=== PATIENT | male | born 1960 | race Caucasian/White ===

== ENCOUNTER 2018-05-25 12:06 | Inpatient (IN) ==
[2018-05-25] MEDS ORDERED: LORazepam 1 MG Tablet PO ONE (15:30)
[2018-05-25] MEDS ORDERED: Acetaminophen 325 MG Tablet PO PRN (15:59)
[2018-05-25] MEDS ORDERED: Aluminum/Magnesium/Simethacone Susp 30 ML UDC PO PRN (15:59)
--- NOTE | 2018-05-26 17:39 | P.HPPSY ---
Provisional Diagnosis Admission Date: May 25, 2018 15:11 [place] I.: Schizophrenia Competence Certification of Person's Competence To Provide Express and Informed Consent I have personally examined Nguyễn Stephens, a person being served at [facility] on, May 26, 2018 1739. Express and informed consent means consent voluntarily given in writing, by a competent person, after sufficient explanation and disclosure of the subject matter involved to enable the person to make a knowing and willful decision without any element of force, fraud, deceit, duress, or other form of constraint or coercion. This person is 18 years of age or older, is not now known to be incompetent to consent to treatment with a guardian advocate, and does not have a health care surrogate or proxy currently making medical treatment decisions. I have found this person to be one of the following: [] Competent to provide express and informed consent, as defined above, for voluntary admission to this facility and is competent to provide express and informed consent for treatment. He/she has the consistent capacity to make well reasoned, willful, and knowing decisions concerning his or her medical or mental health treatment. The person fully and consistently understands the purpose of the admission for examination/placement and is fully capable of personally exercising all rights assured [place]xxx] Incompetent to provide express and informed consent to voluntary admission , and this is incompetent to provide express and informed consent to treatment. The person must be transferred to involuntary status and a petition for a guardian advocate filed with the Circuit Court. [] Refusing to provide express and informed consent to voluntary admission but is competent to provide express and informed consent for treatment. The person must be discharged or transferred to involuntary status. Form shall be completed within 24 hours of a person's arrival at the receiving facility and filed in the clinical record of each person: 1. Admitted on a voluntary basis 2. Permitted to provide express and informed consent to his/her own treatment 3. Allowed to transfer from involuntary to voluntary status 4. Prior to permitting a person to consent to his or her own treatment after having been previously found incompetent to consent to treatment. History of Present Illness Capacity: Lacks capacity History of Present Illness: Tanya is a 58 y/o man, domiciled with mother, with a past history of schizophrenia, previous psychiatric admissions including state hospitalizations, denies any previous suicide attempt or self interest behavior , with a past medical history significant for hypertension COPD, denies any substance use history, who was brought under Pacheco act the patient was found naked in the field noted to be disorganized, confused, tangential and manic and was admitted to the inpatient psychiatry for further evaluation and management. Patient was found lying hospital bed noted B, and superficially cooperative that he is noted to be grossly disorganized during interview and was currently taking statements and responses to questioning. Patient states that he was walking in circles, unable to recall events prior to his admission only stating that people were making fun of him. Patient denying auditory hallucinations but is noted to be talking to self as per staff observation on the unit. Patient unable to provide any adequate history is a poor historian. Patient has endorse to staff that he is a "serial killer" as well as other bizarre statements. Patient is unable to tolerate interview due to disorganization. Past psychiatric history: Previous psychiatric diagnoses schizophrenia, previous psychiatric admissions, including state hospitalization, no previous suicide attempt or self interest behavior. Patient has no outpatient mental health provider, previous medication trials included in psychotic mood able to recall names, along with Artane and Benadryl. History of ECT treatments in the past as per chart. Past medical history: hypertension, COPD Substance use history: Denies Allergies: Thorazine, Haldol, Prolixin Social history: Reports living with brother. - Inpatient Certification I certify that the inpatient services were ordered in accordance with Medicare regulations governing the order. This includes certification that hospital inpatient services are reasonable and necessary and in the case of services not specified as inpatient-only under 42 CFR 419.22(n), that they are appropriately provided as inpatient services in accordance to with the 2-midnight benchmark under 43 CFR 412.3(e) I certify that inpatient psychiatric hospital services are medically necessary. Evaluation and treatment and/or diagnostic testing are expected to improve the patient's condition. The patient needs on a daily basis, active treatment furnished directly by or requiring the supervision of inpatient psychiatric facility personnel. Estimated Total Length of Stay (Days): 7 Plans for Post Hospital Care: Not yet determined Review of Systems All other systems reviewed negative except as stated in HPI [facility] - History History Provided By: Patient - Tobacco History Smoking Status: Unknown if ever smoked - Alcohol History How Often Do You Have a Drink Containing Alcohol: Unable to Obtain - Substance Use History Substance History: No History of Abuse - Immunization History Tetanus Immunization: Unable to Assess Hx Influenza Vaccine This Season: Unable to Assess Quality Measures - Psychiatric History Psychological trauma history: Unable to assess due to patient disorganized thought process. Violence risk to others in the last 6 months: Low Violence risk to self in the last 6 months: Low - Substance Abuse History Drug or alcohol use in the past 12 months: Denies - Patient Strengths Patient's strengths (minimum of 2): Verbal and communicative Medications and Allergies Active Medications: Active Medications Acetaminophen (Tylenol) 650 mg PO Q4H PRN PRN Reason: Pain 1-5 or Temp >101F Al Hydrox/Mg Hydrox/Simethicone (Mag-Al Plus Susp Liq) 30 ml PO Q6H PRN PRN Reason: DYSPEPSIA Al Hydroxide/Mg Hydroxide (Milk Of Magnesia Liq) 30 ml PO DAILY PRN PRN Reason: Constipation Diphenhydramine HCl (Benadryl) 50 mg PO HS PRN PRN Reason: INSOMNIA Nicotine (Habitrol 21 Mg Patch.24 Hr) 1 patch T-DERMAL DAILY PRN PRN Reason: NICOTINE CRAVING Patch Removal (Remove Old Patch) 1 each T-DERMAL DAILY PRN PRN Reason: SEE LABEL COMMENTS Allergies Allergy/AdvReac Type Severity Reaction Status Date / Time chlorpromazine AdvReac Unknown unknown Verified 05/25/18 15:29 [From Thorazine] fluphenazine [From Prolixin] AdvReac Unknown unknown Verified 05/25/18 15:29 haloperidol [From Haldol] AdvReac Unknown unknown Verified 05/25/18 15:29 Home Medications Medication Instructions Recorded Confirmed Type No Known Home Medications 05/26/18 05/26/18 History Exam Vital signs: Vital Signs 05/26/18 16:56 Temperature 98.0 F Pulse Rate 71 Respiratory Rate 18 Blood Pressure 141/101 H Pulse Oximetry 97 Intake & Output 05/25/18 05/26/18 05/26/18 18:59 06:59 18:59 Weight 92.5 kg Other: Weight On Admission 92.5 kg Narrative: Patient not noted to be acute distress but is noted to have spontaneous nonpurposeful upper and lower extremity movements likely secondary from EPS, no tremors, no psychomotor agitation or retardation. Mental Status Examination Appearance: Disheveled Consciousness: Alert Orientation: Person Speech: Pressured (Slightly) Language: Adequate Fund of Knowledge: Inadequate Attention and Concentration: Inadequate Memory: Impaired (Surrounding events prior to his admission) Mood: Anxious Thought Content: Bizarre thinking Hallucination Type: None Delusion Type: Bizarre Suicidal Ideation: No Suicidal Plan: No Suicidal Intention: No Homicidal Ideation: No Homicidal Plan: No Homicidal Intention: No Insight: Poor Judgment: Poor Assessment and Plan - Assessment (1) Schizophrenia Code(s): F20.9 - Schizophrenia, unspecified Status: Acute - Plan Plan: Estimated LOS: [] days Patient is a 28-year-old man who carries a diagnosis schizophrenia, multiple psychiatric admissions no previous suicide attempt or self interest behavior with a past medical history significant for hypertension COPD, who was brought under Pacheco act due to disorganization, confusion, acutely psychotic which patient was admitted to the inpatient psychiatry unit require inpatient stabilization and for safety. Patient this time continues to be noted to be acutely psychotic, disorganized. Patient will require restudy of antipsychotic treatment for symptoms but requiring healthcare surrogate to consent for his treatment as patient this time does not have capacity for the same. Petition for involuntary hospitalization started, second opinion requested. We will continue to monitor mood and behavior. Discharge planning a progress. Justification for Continued Inpatient Stay: At risk for further decompensation if at lower level of care.
--- NOTE | 2018-05-27 10:41 | P.CONPSY ---
Provisional Diagnosis Admission Date: May 25, 2018 15:11 [place] I.: 1. Schizophrenia, unspecified type, acute exacerbation [place] II.: Deferred History of Present Illness Service: Psychiatry Consult date: 05/27/18 Requesting Physician: Rafa Vincent Reason for Consult: Second opinion for involuntary psychiatric hospitalization Primary Care Provider: UNKNOWN History of Present Illness: Mr. Stephens is a 58-year-old male with a history of schizophrenia who presents under a Pacheco act. Patient has been evaluated by Dr. Vincent, and I have reviewed his documentation. Reviewing the electronic medical record, it appears this is patient's first visit to [facility]. Patient seen and examined with nurse. Chart reviewed. Case discussed with nursing staff. Per nursing staff, patient exhibits flight of ideas and rambles about Hitler. On my examination today, patient presents as frankly internally stimulated. He tells me he was at [facility] for 35 years and was discharged a few days ago. He tells me "I'm not right, I need help." He denies SI/HI but seems unreliable to contract for safety. No mood symptoms. Some paranoia noted. Remainder of the psychiatric ROS is negative. No acute physical complaints. Past psychiatric history: Patient reports a history of previous psychiatric admissions. He says that he has recently been discharged from the [facility], although I do question the length of his reported stay. He reports a history of previous suicide attempts by cutting. Family history: Patient only says "in a way no, yes, we have a punk in the family." Chemical dependency history: No reported abuse of drugs or alcohol. Social history: The patient reports that he lives alone. He is single with no children. He got his GED at age 19. Social history limited because of patient' s degree of psychiatric impairment at present. Review of Systems unobtainable due to mental condition [facility] - History History Provided By: Patient - Tobacco History Smoking Status: Unknown if ever smoked - Alcohol History How Often Do You Have a Drink Containing Alcohol: Unable to Obtain - Substance Use History Substance History: No History of Abuse - Immunization History Tetanus Immunization: Unable to Assess Hx Influenza Vaccine This Season: Unable to Assess Medications and Allergies Active Medications: Active Medications Acetaminophen (Tylenol) 650 mg PO Q4H PRN PRN Reason: Pain 1-5 or Temp >101F Al Hydrox/Mg Hydrox/Simethicone (Mag-Al Plus Susp Liq) 30 ml PO Q6H PRN PRN Reason: DYSPEPSIA Al Hydroxide/Mg Hydroxide (Milk Of Magnesia Liq) 30 ml PO DAILY PRN PRN Reason: Constipation Diphenhydramine HCl (Benadryl) 50 mg PO HS PRN PRN Reason: INSOMNIA Nicotine (Habitrol 21 Mg Patch.24 Hr) 1 patch T-DERMAL DAILY PRN PRN Reason: NICOTINE CRAVING Patch Removal (Remove Old Patch) 1 each T-DERMAL DAILY PRN PRN Reason: SEE LABEL COMMENTS Allergies Allergy/AdvReac Type Severity Reaction Status Date / Time chlorpromazine AdvReac Unknown unknown Verified 05/25/18 15:29 [From Thorazine] fluphenazine [From Prolixin] AdvReac Unknown unknown Verified 05/25/18 15:29 haloperidol [From Haldol] AdvReac Unknown unknown Verified 05/25/18 15:29 Home Medications Medication Instructions Recorded Confirmed Type No Known Home Medications 05/26/18 05/26/18 History Exam Vital signs: Vital Signs 05/26/18 16:56 05/27/18 05:46 Temperature 98.0 F 98.4 F Pulse Rate 71 63 Respiratory Rate 18 18 Blood Pressure 141/101 H Pulse Oximetry 97 96 Narrative: On my examination today, the patient appears to be in no acute physical distress. Patient does exhibit some odd stereotypies. No other motor abnormalities noted. Vital signs reviewed. No laboratories on file within our system. Mental Status Examination Appearance: Disheveled Consciousness: Alert Orientation: Person Motor Activity: Other (Motor exam as above) Speech: Rapid Language: Other (Rambling) Fund of Knowledge: Inadequate Attention and Concentration: Inadequate Memory: Impaired (On clinical exam) Mood: Other (Calm) Affect: Flat Thought Process & Associations: Tangential Thought Content: Bizarre thinking Hallucination Type: Other (Internally stimulated) Delusion Type: Bizarre Suicidal Ideation: No Suicidal Plan: No Suicidal Intention: No Homicidal Ideation: No Homicidal Plan: No Homicidal Intention: No Insight: Poor Judgment: Poor Assessment and Plan - Assessment (1) Schizophrenia Code(s): F20.9 - Schizophrenia, unspecified Status: Acute - Plan Plan: Given the circumstances of his presentation here and his presentation on my examination today, I concur with Dr. Vincent that the patient meets criteria for involuntary psychiatric hospitalization under the Pacheco act. I have completed the second opinion paperwork. Further care as per Dr. Vincent. Thank you very much for this consultation. Signing off. Justification for Continued Inpatient Stay: Per Dr. Vincent
[2018-05-27 16:25] LABS: Baso % (Auto) 0.4 % (0.0-2.0); Eos # (Auto) 0.1 th/mm3 (0.0-0.4); Eos % (Auto) 0.6 % (0.0-4.0); Hematocrit 45.9 % (39.0-51.0); Hemoglobin 15.9 gm/dL (13.0-17.0); Lymph # (Auto) 1.9 th/mm3 (1.0-4.8); Lymph % (Auto) 22.1 % (9.0-44.0); Mean Corpuscular HGB Conc 34.7 % (32.0-36.0); Mean Corpuscular Hemoglobin 32.2 pg (27.0-34.0); Mean Corpuscular Volume 92.8 fL (80.0-100.0); Mean Platelet Volume 8.1 fL (7.0-11.0); Mono # (Auto) 0.9 th/mm3 (0.0-0.9); Mono % (Auto) 10.2 % (0.0-8.0); Neut # (Auto) 5.6 th/mm3 (1.8-7.7); Neut % (Auto) 66.7 % (16.0-70.0); Platelet Count 206 th/mm3 (150-450); Red Blood Count 4.95 mil/mm3 (4.50-5.90); Red Cell Distribution Width 13.5 % (11.6-17.2); White Blood Count 8.4 th/mm3 (4.0-11.0)
[2018-05-27 16:48] LABS: Albumin 4.2 g/dL (3.4-5.0); Anion Gap 11 meq/L (5-15); Aspartate Aminotransferase 8 U/L (15-37); Blood Urea Nitrogen 21 mg/dL (7-18); Calcium 9.8 mg/dL (8.5-10.1); Carbon Dioxide 24.2 meq/L (21.0-32.0); Chloride 107 meq/L (98-107); Glomerular Filtration Rate 65 mL/min (>89); Glucose,Random 97 mg/dL (74-106); Potassium 3.8 meq/L (3.5-5.1); Sodium 142 meq/L (136-145)
[2018-05-27 16:49] LABS: Cholesterol 272 mg/dL (120-200)
[2018-05-27 17:00] LABS: Alanine Aminotransferase 17 U/L (12-78); Alkaline Phosphatase 82 U/L (45-117); Chol/HDL Ratio 4.74 Ratio; HDL Cholesterol 57.3 mg/dL (40.0-60.0); LDL Cholesterol,Calculated 172 mg/dL (0-99); Total Protein 7.6 g/dL (6.4-8.2); Triglycerides 216 mg/dL (42-150)
[2018-05-27 17:03] LABS: Creatine Kinase 61 U/L (39-308)
--- NOTE | 2018-05-27 18:12 | P.PNPSY ---
Subjective Remarks: Patient seen for follow, chart reviewed. Discussion nursing staff reported patient continues with disorganized behavior but no aggressive behavior noted. Patient was found eating breakfast noted B, cooperative. Patient continues with disorganized statements at times, difficult to understand due to his disorganized thought process, reports sleeping well, eating and drinking well denies any perceptional services, alert and oriented only to person at times to place. Patient agrees to continue to maintain hygiene, cooperative staff and agrees to starting medication soon. Review of Systems All other systems reviewed negative except as stated in HPI Mental Status Examination Appearance: Disheveled Consciousness: Alert Orientation: Person Motor Activity: Other (Motor exam as above) Speech: Rapid, Incoherent (At times) Language: Other (Rambling) Fund of Knowledge: Inadequate Attention and Concentration: Inadequate Memory: Impaired (On clinical exam) Mood: Other (Calm) Affect: Flat Thought Process & Associations: Disorganized, Tangential Thought Content: Bizarre thinking Hallucination Type: Other (Internally stimulated) Delusion Type: Bizarre Suicidal Ideation: No Suicidal Plan: No Suicidal Intention: No Homicidal Ideation: No Homicidal Plan: No Homicidal Intention: No Insight: Poor Judgment: Poor Assessment and Plan - Assessment (1) Schizophrenia Code(s): F20.9 - Schizophrenia, unspecified Status: Acute - Plan Plan: Patient this time continues with disorganization, disorganized thought process, has not been aggressive or agitated on the unit. Attempts to obtain healthcare surrogate and guardian advocate for this admission have been unsuccessful despite multiple calls to collateral contacts as per chart. We will continue to attempt to identify and reach patient's siblings for this role and to start treatment. We will continue to monitor mood and behavior. Discharge planning a progress. Justification for Continued Inpatient Stay: At risk for further decompensation if at lower level of care
[2018-05-27 18:22] LABS: Hemoglobin A1c 4.7 % (4.3-6.0)
--- NOTE | 2018-05-28 13:42 | P.PNPSY ---
Subjective Remarks: Patient seen for follow, chart reviewed. Discussion nursing staff reported that attempts to reach patient's siblings have been unsuccessful, noted to be good spirits but confused. Patient was found heavily on unit noted B, cooperative. Patient noted to be disorganized, unable to maintain train of thought no answer questions appropriately due to disorganization. Patient denies any physical complaints today he is feeling "okay" and noted to be laughing to self he was taking during interview. Patient was reminded that patient will be restarted on medications after we are able to contact 1 of his family members which she acknowledged. Review of Systems All other systems reviewed negative except as stated in HPI Mental Status Examination Appearance: Disheveled Consciousness: Alert Orientation: Person Motor Activity: Other (Motor exam as above) Speech: Rapid, Incoherent (At times) Language: Other (Rambling) Fund of Knowledge: Inadequate Attention and Concentration: Inadequate Memory: Impaired (On clinical exam) Mood: Other (Calm) Affect: Flat Thought Process & Associations: Disorganized, Tangential Thought Content: Bizarre thinking Hallucination Type: Other (Internally stimulated) Delusion Type: Bizarre Suicidal Ideation: No Suicidal Plan: No Suicidal Intention: No Homicidal Ideation: No Homicidal Plan: No Homicidal Intention: No Insight: Poor Judgment: Poor Assessment and Plan - Assessment (1) Schizophrenia Code(s): F20.9 - Schizophrenia, unspecified Status: Acute - Plan Plan: Patient continues to be acutely psychotic and disorganized, no aggressive behavior on the unit, is eating and drinking well along with adequate sleep. Treatment he will continue to attempt to reach family members to serve as health care surrogate and guardian advocate as to consent for treatment. Patient will present to mental health court tomorrow and will be assigned and HCS and GA through the court. Continue to monitor mood and behavior. Discharge planning a progress. Justification for Continued Inpatient Stay: At risk of further decompensation a lower level of care.
--- NOTE | 2018-05-29 15:24 | P.PNPSY ---
Subjective Remarks: Patient seen for follow-up, chart reviewed. Discussion with nursing staff reported that the patient disorganized this morning, disrobing and noted to be yelling and responding to internal stimuli. Patient had required ETO and was provided with Geodon 20 mg IM along with 50 mg of diphenhydramine IM once". Patient continue with disorganization throughout the day but improves patient provided. Patient was unable to participate in court hearing due to symptomatology but was retained for involuntary hospitalization and [facility] who presented with a [facility] healthcare surrogate and guardian advocate for this admission. Consent for treatment was obtained through [facility] advocate, Mary Garduno. Review of Systems All other systems reviewed negative except as stated in HPI Mental Status Examination Appearance: Disheveled Consciousness: Alert Orientation: Person Motor Activity: Other (Motor exam as above) Speech: Rapid, Incoherent (At times) Language: Other (Rambling) Fund of Knowledge: Inadequate Attention and Concentration: Inadequate Memory: Impaired (On clinical exam) Mood: Other (agitated) Affect: Labile Thought Process & Associations: Disorganized, Tangential Thought Content: Bizarre thinking Hallucination Type: Other (Internally stimulated) Delusion Type: Bizarre Suicidal Ideation: No Suicidal Plan: No Suicidal Intention: No Homicidal Ideation: No Homicidal Plan: No Homicidal Intention: No Insight: Poor Judgment: Poor Assessment and Plan - Assessment (1) Schizophrenia Code(s): F20.9 - Schizophrenia, unspecified Status: Acute - Plan Plan: Patient continues with disorganization, responding to internal stimuli and today noted to be agitated and disrobing which she required ETO of acute on 10 mg IM and diphenhydramine 50 mg IM 1. Treatment consent was obtained through a court appointed guardian advocate,[facility] support representative. Patient will start ziprasidone 20 mg p.o. twice daily for psychosis, 2 mg IM every 12 hours if patient refuses p.o. meds. Benztropine 0.5 mg p.o. twice daily for EPS. We will continue to monitor mood and behavior. Discharge planning in progress. Justification for Continued Inpatient Stay: At risk for further decompensation if at lower level of care.
--- NOTE | 2018-05-29 16:28 | P.CON ---
History of Present Illness Requesting Physician: Rafa Vincent Reason for Consult: HTN Primary Care Provider: UNKNOWN History of Present Illness: 58-year-old white male admitted under [place] act to psychiatry for acute behavioral disturbance from [facility]. Last 24-36 hours patient has been noted to have elevated blood pressure readings. EKG was obtained which independently reviewed which shows no acute findings concerning for ischemia nor infarction. Patient's blood work shows mild renal insufficiency with a creatinine at 1.16 and it is unclear if this is acute or chronic. His outside blood work shows even a higher creatinine at 1.29. Patient himself appears to be unreliable historian as he is constantly verbalizing clusters of words. Review of Systems unobtainable due to mental status PMFSH - History History Provided By: Patient - Medical History Medical History: Medical History (Last Updated 05/29/18 @ 16:24 by Neel Martinez MD) Schizophrenia - Tobacco History Smoking Status: Unknown if ever smoked - Alcohol History How Often Do You Have a Drink Containing Alcohol: Unable to Obtain - Substance Use History Substance History: No History of Abuse - Immunization History Tetanus Immunization: Unable to Assess Hx Influenza Vaccine This Season: Unable to Assess Medications and Allergies Active Medications: Active Medications Acetaminophen (Tylenol) 650 mg PO Q4H PRN PRN Reason: Pain 1-5 or Temp >101F Al Hydrox/Mg Hydrox/Simethicone (Mag-Al Plus Susp Liq) 30 ml PO Q6H PRN PRN Reason: DYSPEPSIA Al Hydroxide/Mg Hydroxide (Milk Of Magnesia Liq) 30 ml PO DAILY PRN PRN Reason: Constipation Benztropine Mesylate (Cogentin) 0.5 mg PO BID LYSSA Diphenhydramine HCl (Benadryl) 50 mg PO HS PRN PRN Reason: INSOMNIA Lorazepam (Ativan) 1 mg PO Q6H PRN PRN Reason: ANXIETY AND/OR AGITATION Nicotine (Habitrol 21 Mg Patch.24 Hr) 1 patch T-DERMAL DAILY PRN PRN Reason: NICOTINE CRAVING Patch Removal (Remove Old Patch) 1 each T-DERMAL DAILY PRN PRN Reason: SEE LABEL COMMENTS Ziprasidone (Geodon) 20 mg PO BIDPC LYSSA Allergies Allergy/AdvReac Type Severity Reaction Status Date / Time chlorpromazine AdvReac Unknown unknown Verified 05/25/18 15:29 [From Thorazine] fluphenazine [From Prolixin] AdvReac Unknown unknown Verified 05/25/18 15:29 haloperidol [From Haldol] AdvReac Unknown unknown Verified 05/25/18 15:29 Home Medications Medication Instructions Recorded Confirmed Type No Known Home Medications 05/26/18 05/26/18 History Physical Exam Vital signs: Vital Signs 05/29/18 06:16 Pulse Rate 65 Respiratory Rate 16 Blood Pressure 152/85 H Pulse Oximetry 97 Narrative: VS: afebrile GENERAL: Standing upright, NAD SKIN: Warm and dry. EYES: No scleral icterus. No injection or drainage. ENT: No nasal bleeding or discharge. CARDIOVASCULAR: Regular rate and rhythm. no murmurs RESPIRATORY: No accessory muscle use. Clear to auscultation. Breath sounds equal bilaterally. GASTROINTESTINAL: Abdomen nondistended. Extremities: No clubbing, cyanosis, or edema. No obvious deformities. MUSCULOSKELETAL: adequate muscle bulk and tone for age and habitus NEUROLOGICAL: Awake and alert. No obvious cranial nerve deficits. No facial droop nor slurred speech noted. PSYCHIATRIC: impaired insight, calm mood but with non-stop speech Assessment and Plan - Plan 58-year-old white male being managed by psychiatry for acute behavioral disturbance Acute behavioral disturbance -Psychiatry managing Hypertension -likely chronic, start lisinopril low-dose Renal insufficiency -Likely chronic from suspected underlying chronic untreated HTN, start low-dose lisinopril - minimize nephrotoxins I anticipate that the pt's HTN will stabilize swiftly. Will sign off for now. If BP arises > 150/95, please reconsult.
[2018-05-29] MEDS: Lisinopril 5 MG Tablet PO SCH (17:11)
[2018-05-29] MEDS: LORazepam 1 MG Tablet PO PRN (20:13)
[2018-05-30] MEDS: Lisinopril 5 MG Tablet PO SCH (08:38)
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
--- NOTE | 2018-05-30 12:05 | ECG ---
Date Performed: 05/29/2018 Time Performed: 15:58:49 PTAGE: 58 years EKG: Sinus rhythm NORMAL ECG NO PREVIOUS TRACING DOCTOR: Bal Howe Interpretating Date/Time 05/30/2018 12:03:26
[2018-05-30] MEDS ORDERED: Propranolol 10 MG Tablet PO ONE ×2 (12:45→13:15)
[2018-05-30] MEDS: Propranolol 10 MG Tablet PO SCH ×2 (16:44→20:42)
[2018-05-30] MEDS: LORazepam 1 MG Tablet PO PRN (17:32)
[2018-05-30] MEDS ORDERED: diphenhydrAMINE HCl 50 MG/ML VIAL IV.PUSH ONE (19:15)
[2018-05-31] MEDS: Propranolol 10 MG Tablet PO SCH ×3 (08:36→20:46)
[2018-05-31] MEDS: Lisinopril 5 MG Tablet PO SCH (08:37)
[2018-05-31 08:43] LABS: Calcium 9.4 mg/dL (8.5-10.1); Carbon Dioxide 29.6 meq/L (21.0-32.0); Potassium 3.6 meq/L (3.5-5.1)
[2018-05-31 09:05] LABS: CKMB Percent 0.9 % (0.0-4.0); Creatine Kinase MB 6.6 ng/mL (0.5-3.6)
[2018-05-31] MEDS: LORazepam 1 MG Tablet PO PRN ×2 (12:58→20:45)
--- NOTE | 2018-05-31 16:48 | P.PNPSY ---
Subjective Remarks: Patient was seen and case discussed with nursing. Patient is behaving well on the unit. Scribes his mood today is "pretty good." He has not needed any ETO' s today. He is somewhat internally preoccupied but no specific delusions were elicited. Thought processes tangential Mental Status Examination Appearance: Disheveled Consciousness: Alert, Vigilant Orientation: Person Motor Activity: Normal gait, Other (No motor abnormalities noted.) Speech: Rapid Language: Other (Rambling) Fund of Knowledge: Inadequate Attention and Concentration: Inadequate Memory: Impaired (Psychosis interferes) Mood: Angry, Oppositional, Irritable Affect: Irritable, Labile Thought Process & Associations: Disorganized, Tangential Thought Content: Bizarre thinking Hallucination Type: Other (Internally stimulated) Delusion Type: Bizarre Suicidal Ideation: No (No SI voiced) Suicidal Plan: No Suicidal Intention: No Homicidal Ideation: No (No HI voiced) Homicidal Plan: No Homicidal Intention: No Insight: Poor Judgment: Poor Assessment and Plan - Assessment (1) Schizophrenia Code(s): F20.9 - Schizophrenia, unspecified Status: Acute - Plan Plan: Continue current treatment plan Justification for Continued Inpatient Stay: Patient would decompensate in a less restrictive setting
[2018-06-01] MEDS: Propranolol 10 MG Tablet PO SCH ×3 (09:14→20:57)
[2018-06-01] MEDS: LORazepam 1 MG Tablet PO PRN ×2 (09:16→15:32)
[2018-06-01] MEDS: Lisinopril 5 MG Tablet PO SCH (09:16)
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
[2018-06-02] MEDS: Propranolol 10 MG Tablet PO SCH ×3 (08:51→20:18)
[2018-06-02] MEDS: Lisinopril 5 MG Tablet PO SCH (08:51)
[2018-06-02] MEDS: LORazepam 1 MG Tablet PO PRN ×2 (12:57→20:17)
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
[2018-06-02] MEDS: OLANZapine 10 MG ODT Tablet PO SCH (20:18)
[2018-06-03] MEDS: Lisinopril 5 MG Tablet PO SCH (08:26)
[2018-06-03] MEDS: OLANZapine 10 MG ODT Tablet PO SCH ×2 (08:26→20:23)
[2018-06-03] MEDS: Propranolol 10 MG Tablet PO SCH ×3 (08:26→20:24)
[2018-06-03] MEDS: LORazepam 1 MG Tablet PO PRN ×2 (08:26→16:05)
[2018-06-03] MEDS: Divalproex 500 MG ER Tablet PO SCH (08:29)
[2018-06-03] MEDS ORDERED: Divalproex 500 MG ER Tablet PO SCH (09:00)
--- NOTE | 2018-06-03 15:23 | P.PNPSY ---
Subjective Remarks: Patient seen for follow up; chart reviewed. Discussion with nursing staff reported patient continues with this organization, agitated and threatening with poor sleep and compliant with medications. Patient was found ambulating in the hallway noted to be disorganized, talking to self. Patient continues to have difficulty with organized thought process, disorganized making nonsensical statements at times with flight of ideas. Patient was able to state that he has had difficulty sleeping the site and when mentioned trazodone for sleep patient reported having side effects and that I want to take this. He also denies any auditory hallucinations although noted to be talking to self throughout interview. Patient states that his mood has been "depressed" denying any SI or HI. Review of Systems All other systems reviewed negative except as stated in HPI Mental Status Examination Appearance: Disheveled Consciousness: Alert, Vigilant Orientation: Person Motor Activity: Normal gait, Other (noted ) Speech: Rapid Language: Other (Rambling, yelling and cursing) Fund of Knowledge: Inadequate Attention and Concentration: Inadequate Memory: Impaired (Psychosis interferes) Mood: Angry, Oppositional, Irritable Affect: Irritable, Labile Thought Process & Associations: Disorganized, Tangential Thought Content: Bizarre thinking Hallucination Type: Other (Internally stimulated) Delusion Type: Bizarre, Paranoid Suicidal Ideation: No (No SI voiced) Suicidal Plan: No Suicidal Intention: No Homicidal Ideation: No (No HI voiced) Homicidal Plan: No Homicidal Intention: No Insight: Poor Judgment: Poor Assessment and Plan - Assessment (1) Schizophrenia Code(s): F20.9 - Schizophrenia, unspecified Status: Acute - Plan Plan: Patient continues with disorganization, responding to internal stimuli, with poor impulse control but not need ETO's today. We will continue current treatment. We will continue to monitor mood and behavior. We will encourage patient to increase fluid p.o. intake due to elevated CK levels noted on labs recently. Discharge planning in progress. Justification for Continued Inpatient Stay: At risk for further decompensation if at lower level of care.
[2018-06-04] MEDS: Propranolol 10 MG Tablet PO SCH ×3 (08:39→20:41)
[2018-06-04] MEDS: Lisinopril 5 MG Tablet PO SCH (08:39)
[2018-06-04] MEDS: Divalproex 500 MG ER Tablet PO SCH (08:39)
[2018-06-04] MEDS: OLANZapine 10 MG ODT Tablet PO SCH (08:39)
--- NOTE | 2018-06-04 10:53 | P.PNPSY ---
Subjective Remarks: Patient seen for follow, chart reviewed. Discussion nursing staff reported the patient continues to be intrusive, cursing, but made compliant and not requiring any ETO's yesterday. Patient was found heavily on the unit continues to be noted to be disorganized but able to answer some questions appropriately during interview. Patient state he is feeling "good", patient noted to have ear plugs made a paper and states that he uses this because of "evil spirits, into my mind". Patient continues with nonsensical statements at times was able to provide an address of where he was living prior to admission. Patient denies any physical complaints at this time, denies any auditory hallucinations although noted to be responding to internal stimuli. Review of Systems All other systems reviewed negative except as stated in HPI Mental Status Examination Appearance: Other (Fair, casual clothing) Consciousness: Alert, Vigilant Orientation: Person Motor Activity: Normal gait, Other (noted less involuntary movements) Speech: Pressured Language: Other (Rambling) Fund of Knowledge: Inadequate Attention and Concentration: Inadequate Memory: Impaired (Psychosis interferes) Mood: Other ("Good") Affect: Labile Thought Process & Associations: Disorganized, Tangential Thought Content: Bizarre thinking Hallucination Type: Other (Internally stimulated) Delusion Type: Bizarre, Paranoid Suicidal Ideation: No (No SI voiced) Suicidal Plan: No Suicidal Intention: No Homicidal Ideation: No (No HI voiced) Homicidal Plan: No Homicidal Intention: No Insight: Poor Judgment: Poor Assessment and Plan - Assessment (1) Schizophrenia Code(s): F20.9 - Schizophrenia, unspecified Status: Acute - Plan Plan: Patient continues with some disorganization, making nonsensical statements responding to stimuli as well as having endorse auditory hallucinations. We will increase Zyprexa to 10 mg a.m./15 mg at bedtime, we will continue rest of medications. We will order labs (CMP, ammonia level, CK level, valproic acid level scheduled for 06/06/18). We will continue to monitor mood and behavior. Continue to encourage patient to maintain adequate oral hydration due to previous elevation in CK prior labs. Discharge planning in progress. Justification for Continued Inpatient Stay: At risk for further decompensation if at lower level of care.
[2018-06-04] MEDS: LORazepam 1 MG Tablet PO PRN (12:32)
[2018-06-04 15:40] LABS: Alanine Aminotransferase 21 U/L (12-78); Albumin 3.7 g/dL (3.4-5.0); Anion Gap 9 meq/L (5-15); Aspartate Aminotransferase 12 U/L (15-37); Blood Urea Nitrogen 21 mg/dL (7-18); Calcium 9.6 mg/dL (8.5-10.1); Carbon Dioxide 28.4 meq/L (21.0-32.0); Chloride 102 meq/L (98-107); Glomerular Filtration Rate 61 mL/min (>89); Glucose,Random 107 mg/dL (74-106); Potassium 3.9 meq/L (3.5-5.1); Sodium 139 meq/L (136-145)
[2018-06-04 15:42] LABS: Alkaline Phosphatase 93 U/L (45-117); Creatine Kinase 117 U/L (39-308); Total Protein 6.8 g/dL (6.4-8.2)
[2018-06-04 16:08] LABS: Creatine Kinase MB 1.9 ng/mL (0.5-3.6)
[2018-06-04] MEDS: OLANZapine 15 MG ODT Tablet PO SCH (20:40)
[2018-06-05] MEDS: Lisinopril 5 MG Tablet PO SCH (08:37)
[2018-06-05] MEDS: OLANZapine 10 MG ODT Tablet PO SCH (08:38)
[2018-06-05] MEDS: Divalproex 500 MG ER Tablet PO SCH (08:38)
[2018-06-05] MEDS: Propranolol 10 MG Tablet PO SCH ×3 (08:38→21:20)
[2018-06-05] MEDS: LORazepam 1 MG Tablet PO PRN (09:24)
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
[2018-06-05] MEDS: OLANZapine 15 MG ODT Tablet PO SCH (21:20)
[2018-06-06] MEDS: Divalproex 500 MG ER Tablet PO SCH (09:05)
[2018-06-06] MEDS: Lisinopril 5 MG Tablet PO SCH (09:08)
[2018-06-06] MEDS: Propranolol 10 MG Tablet PO SCH ×3 (09:08→21:19)
[2018-06-06] MEDS: LORazepam 1 MG Tablet PO PRN ×2 (09:08→15:12)
[2018-06-06] MEDS: OLANZapine 10 MG ODT Tablet PO SCH (09:09)
--- NOTE | 2018-06-06 19:06 | P.PNPSY ---
Subjective Remarks: Patient seen for follow-up, chart reviewed. Discussion with nursing staff reported that the patient continues to have moments rambling, but no yelling no. Patient was found lying hospital and noted to be calm and cooperative with interview. Patient states he is feeling "depressed" from being here in the hospital, continues to have disorganized thoughts during interview and difficult to understand at times. Patient reports eating and drinking well, with no difficulty or bowel movements. Patient denies any auditory hallucinations and states that his brother works here at the hospital. Other patient continues with disorganization is noted to be slightly improved. Review of Systems All other systems reviewed negative except as stated in HPI Mental Status Examination Appearance: Other (Fair, casual clothing) Consciousness: Alert, Vigilant Orientation: Person Motor Activity: Normal gait, Other (noted less involuntary movements) Speech: Pressured Language: Other (Rambling) Fund of Knowledge: Inadequate Attention and Concentration: Inadequate Memory: Impaired (Psychosis interferes) Mood: Other ("Good") Affect: Labile (Lessening) Thought Process & Associations: Disorganized (slightly improving), Tangential Thought Content: Bizarre thinking Hallucination Type: Other (Internally stimulated) Delusion Type: Bizarre, Paranoid Suicidal Ideation: No (No SI voiced) Suicidal Plan: No Suicidal Intention: No Homicidal Ideation: No (No HI voiced) Homicidal Plan: No Homicidal Intention: No Insight: Poor Judgment: Poor Assessment and Plan - Assessment (1) Schizophrenia Code(s): F20.9 - Schizophrenia, unspecified Status: Acute - Plan Plan: Patient noted to be slightly less disorganized although continues to be present , denying any perceptional disturbances but at times noted to be talking to self. Valproic acid office found within therapeutic limits (90). We will continue current treatment. We will continue to monitor mood and behavior. Request for state referral started as patient likely will require long-term stabilization. Discharge planning in progress. Justification for Continued Inpatient Stay: At risk for further decompensation if at lower level of care.
[2018-06-06] MEDS: OLANZapine 15 MG ODT Tablet PO SCH (21:20)
[2018-06-07] MEDS: Propranolol 10 MG Tablet PO SCH ×3 (09:33→21:33)
[2018-06-07] MEDS: Divalproex 500 MG ER Tablet PO SCH (09:33)
[2018-06-07] MEDS: LORazepam 1 MG Tablet PO PRN ×2 (09:33→21:33)
[2018-06-07] MEDS: OLANZapine 10 MG ODT Tablet PO SCH (09:33)
[2018-06-07] MEDS: Lisinopril 5 MG Tablet PO SCH (09:37)
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
[2018-06-07] MEDS: OLANZapine 15 MG ODT Tablet PO SCH (21:33)
[2018-06-08] MEDS: Propranolol 10 MG Tablet PO SCH ×3 (10:11→21:06)
[2018-06-08] MEDS: OLANZapine 10 MG ODT Tablet PO SCH (10:11)
[2018-06-08] MEDS: Lisinopril 5 MG Tablet PO SCH (10:11)
[2018-06-08] MEDS: Divalproex 500 MG ER Tablet PO SCH (10:11)
[2018-06-08] MEDS: LORazepam 1 MG Tablet PO PRN ×3 (10:12→21:24)
--- NOTE | 2018-06-08 16:49 | P.PNPSY ---
Subjective Remarks: Reviewed electronic medical records and discussed case with staff. Follow-up was conducted in the hallway. Initially, I interact with this patient during fresh air he is reporting that at another patient was is "older sister". States that he sleeping well he has good appetite. He is discharged focused. He remains quite intrusive and inappropriate at times. He complained to the nurse about his scrotal pain and then later while was on the unit he complained once again about interaction. This is the second day in a row he has had a complaint about interaction that would not go down. After some research I found that Zyprexa can cause priapism. I consulted with Dr. Vincent and his Zyprexa has been placed on hold. Dr. Vincent will be following the patient tomorrow and will decide how to adjust his treatment plan. Mental Status Examination Appearance: Other (Fair, casual clothing) Consciousness: Alert, Vigilant Orientation: Person Motor Activity: Normal gait, Other (noted less involuntary movements) Speech: Pressured Language: Other (Rambling) Fund of Knowledge: Inadequate Attention and Concentration: Inadequate Memory: Impaired (Psychosis interferes) Mood: Other ("Good") Affect: Labile (Lessening) Thought Process & Associations: Disorganized (slightly improving), Tangential Thought Content: Bizarre thinking Hallucination Type: Other (Internally stimulated) Delusion Type: Bizarre, Paranoid Suicidal Ideation: No (No SI voiced) Suicidal Plan: No Suicidal Intention: No Homicidal Ideation: No (No HI voiced) Homicidal Plan: No Homicidal Intention: No Insight: Poor Judgment: Poor Assessment and Plan - Assessment (1) Schizophrenia Code(s): F20.9 - Schizophrenia, unspecified Status: Acute - Plan Plan: Patient will be reevaluated tomorrow by the attending psychiatrist. Continue with current treatment plan. Patient's medication may need some adjustment due to possible priapism. He continues to be intrusive, impulsive, inappropriate, and delusional at times. Justification for Continued Inpatient Stay: Moving this patient to a less restrictive environment would likely result in decompensation.
[2018-06-09] MEDS: LORazepam 1 MG Tablet PO PRN ×2 (03:53→09:41)
[2018-06-09] MEDS: Divalproex 500 MG ER Tablet PO SCH (09:08)
[2018-06-09] MEDS: Propranolol 10 MG Tablet PO SCH ×3 (09:08→20:37)
[2018-06-09] MEDS: Lisinopril 5 MG Tablet PO SCH (09:08)
[2018-06-09 09:35] LABS: Baso % (Auto) 0.4 % (0.0-2.0); Eos # (Auto) 0.2 th/mm3 (0.0-0.4); Eos % (Auto) 3.7 % (0.0-4.0); Hematocrit 40.9 % (39.0-51.0); Hemoglobin 14.2 gm/dL (13.0-17.0); Lymph # (Auto) 1.5 th/mm3 (1.0-4.8); Lymph % (Auto) 29.8 % (9.0-44.0); Mean Corpuscular HGB Conc 34.8 % (32.0-36.0); Mean Corpuscular Volume 91.9 fL (80.0-100.0); Mean Platelet Volume 7.8 fL (7.0-11.0); Mono # (Auto) 0.5 th/mm3 (0.0-0.9); Mono % (Auto) 9.9 % (0.0-8.0); Neut # (Auto) 2.7 th/mm3 (1.8-7.7); Neut % (Auto) 56.2 % (16.0-70.0); Platelet Count 213 th/mm3 (150-450); Red Blood Count 4.45 mil/mm3 (4.50-5.90); Red Cell Distribution Width 12.8 % (11.6-17.2); White Blood Count 4.9 th/mm3 (4.0-11.0)
[2018-06-09] MEDS ORDERED: ARIPiprazole 10 MG Tablet PO SCH (12:00)
--- NOTE | 2018-06-09 17:27 | P.PNPSY ---
Subjective Remarks: Patient seen for follow up; chart reviewed. Discussion with nursing staff reported patient continues to have intrusive behavior, continues to complain of sustained erection on the unit but appears to be lessening after holding olanzapine although had an erection earlier this morning which patient reported being bothersome. Patient was found ambulating on the unit, continues to have intrusive behavior require redirection but no aggressive behavior. Patient states that he no longer wants to be able to take the olanzapine as he states he is having erections that do not go away although states that it is less as soon as he sits stopped taking the olanzapine. Patient continues to be disorganized at times but improving and able to engage more effectively recently. It is possible the patient may continue to start to decompensate us last March and has been held now due to adverse drug reactions causing possible priapism. Discussion of alternative medications to treat current psychosis was reviewed the patient such as clozapine or Abilify which patient refused stating that it caused other side effects such as excessive sedation and akathisia in the past. Patient agreed to start asenapine. Consent was obtained by patient' s [facility] chain sales representative after review benefits/risks/alternatives. Review of Systems All other systems reviewed negative except as stated in HPI Mental Status Examination Appearance: Other (Fair, casual clothing) Consciousness: Alert, Vigilant Orientation: Person Motor Activity: Normal gait, Other (noted less involuntary movements) Speech: Pressured Language: Other (Rambling) Fund of Knowledge: Inadequate Attention and Concentration: Inadequate Memory: Impaired (Psychosis interferes) Mood: Other ("Good") Affect: Labile (Lessening) Thought Process & Associations: Disorganized (slightly improving), Tangential Thought Content: Bizarre thinking Hallucination Type: Other (Internally stimulated) Delusion Type: Bizarre, Paranoid Suicidal Ideation: No (No SI voiced) Suicidal Plan: No Suicidal Intention: No Homicidal Ideation: No (No HI voiced) Homicidal Plan: No Homicidal Intention: No Insight: Poor Judgment: Poor Assessment and Plan - Assessment (1) Schizophrenia Code(s): F20.9 - Schizophrenia, unspecified Status: Acute - Plan Plan: Patient continued with some disorganization during interview although slightly moving. It is of concern of patient to start to decompensate further as patient experiencing adverse drug reactions to current treatment regimen specifically olanzapine. Urology consult requested. Therefore we will start asenapine 5 mg sublingual twice daily with upper titration as needed for psychosis. Continue rest of medications. Continue to monitor mood and behavior. Discharge planning a progress. Justification for Continued Inpatient Stay: At risk of further decompensation at lower level care.
[2018-06-09] MEDS ORDERED: ASENAPINE SL SCH (21:00)
[2018-06-10] MEDS: Propranolol 10 MG Tablet PO SCH ×3 (08:10→20:34)
[2018-06-10] MEDS: Divalproex 500 MG ER Tablet PO SCH (08:10)
[2018-06-10] MEDS: Lisinopril 5 MG Tablet PO SCH (08:10)
[2018-06-10] MEDS: ASENAPINE SL SCH ×2 (11:21→20:34)
--- NOTE | 2018-06-10 11:33 | MB ---
cc: ZoltanKeith Guan DO DATE: 06/09/2018 HISTORY OF PRESENT ILLNESS: This is a 58-year-old male who was admitted to the Psychiatric Unit from [facility] in [place] for acute behavioral disturbance. He was noted to have priapism during this admission and apparently the day before he had it for approximately 12 hours. The patient states that he does have a history of priapism and it occurred before when he was on Depakote. He was on Zyprexa during this admission, which also can cause priapism and this has been stopped. However, his Depakote is currently 2000 mg daily at the present time. He is presently without priapism at the present moment. It is difficult to obtain a full history from him as this will be taken mostly from the chart. PAST MEDICAL HISTORY: Negative for schizophrenia with prior suicide attempt, hypertension, COPD. ALLERGIES: THORAZINE, HALDOL AND PROLIXIN. SOCIAL HISTORY: He currently lives with his brother. It is unknown if he has ever smoked. Unable to obtain if he has drank before. FAMILY HISTORY: Unable to obtain any surgical history. REVIEW OF SYSTEMS: Also unable to obtain a review of systems. MEDICATIONS: For medications, please refer to the chart. PHYSICAL EXAMINATION: VITAL SIGNS: Temperature 97.6, heart rate 76, respiratory rate 17, blood pressure 126/87. GENERAL: He is a well-developed, well-nourished, 58-year-old man in no acute distress. HEENT: Normocephalic, atraumatic. Pupils equal, round, regular and reactive to light. Extraocular movements intact. NECK: Supple. HEART: Regular rate and rhythm. LUNGS: Clear. ABDOMEN: Soft, nontender, nondistended. GENITOURINARY: Normal phallus. Testes distended. EXTREMITIES: Show no evidence of cyanosis, clubbing, or edema. ASSESSMENT: This is a 58-year-old male with schizophrenia, admitted for acute behavior disorder with priapism. Priapism could also be related to the fact that he is on Depakote and mentioned that he has a history of it on Depakote. Zyprexa has been stopped. Would continue to monitor for now as priapism has resolved, but if persists, we will need to possibly stop the Depakote and find another agent if possible. We will continue to monitor with you. Thank you for the consult and allowing me to participate in the care of this patient. DO TEOFILO Billingsley/ALBA , 11:15 AM , 11:23 AM
[2018-06-11] MEDS: Divalproex 500 MG ER Tablet PO SCH (08:30)
[2018-06-11] MEDS: Propranolol 10 MG Tablet PO SCH ×3 (08:30→20:44)
[2018-06-11] MEDS: ASENAPINE SL SCH ×2 (08:32→20:45)
[2018-06-11] MEDS: Lisinopril 5 MG Tablet PO SCH (08:34)
--- NOTE | 2018-06-11 17:29 | P.PNPSY ---
Subjective Remarks: Patient seen for follow up; chart reviewed. Discussion with nursing staff reported that patient no changes continues to be disorganized at times and intrusive requiring redirection. Patient was found ambulating on the unit this morning upset demanding discharge and being belligerent with staff which patient was redirected back to his room. Patient was seen later that morning along with therapist and nurse noted be superficially cooperative with interview today. He mentions that he had vomited this morning although staff did not notice this but denying any other physical complaints. Patient states he wants to be discharged back to [facility] but also mentions to be wanted to return back to the residence where he was discharged to after his psychiatric admission at [facility]. Patient continues with disorganization. But no aggressive behavior. Review of Systems All other systems reviewed negative except as stated in HPI Mental Status Examination Appearance: Other (Fair, casual clothing) Consciousness: Alert, Vigilant Orientation: Person Motor Activity: Normal gait, Other (noted less involuntary movements) Speech: Pressured Language: Other (Rambling) Fund of Knowledge: Inadequate Attention and Concentration: Inadequate Memory: Impaired (Psychosis interferes) Mood: Irritable Affect: Irritable Thought Process & Associations: Disorganized (slightly improving), Tangential Thought Content: Bizarre thinking Hallucination Type: Other (Internally stimulated) Delusion Type: Bizarre, Paranoid Suicidal Ideation: No (No SI voiced) Suicidal Plan: No Suicidal Intention: No Homicidal Ideation: No (No HI voiced) Homicidal Plan: No Homicidal Intention: No Insight: Poor Judgment: Poor Assessment and Plan - Assessment (1) Schizophrenia Code(s): F20.9 - Schizophrenia, unspecified Status: Acute - Plan Plan: Patient at this time continues with some disorganization, some irritability earlier this morning, but has been redirectable mostly and not having any aggressive behavior. Patient tolerating starting of asenapine with no noted adverse drug reactions such as priapism noted. We will continue current treatment. We will order labs along with valproic acid level tomorrow morning. Continue to monitor mood and behavior. Continue current treatment. Discharge planning a progress. Justification for Continued Inpatient Stay: At risk for further decompensation if at lower level of care
[2018-06-11 20:40] LABS: Baso % (Auto) 0.6 % (0.0-2.0); Eos # (Auto) 0.1 th/mm3 (0.0-0.4); Hematocrit 42.3 % (39.0-51.0); Hemoglobin 14.4 gm/dL (13.0-17.0); Lymph # (Auto) 2.1 th/mm3 (1.0-4.8); Lymph % (Auto) 30.9 % (9.0-44.0); Mean Corpuscular HGB Conc 34.2 % (32.0-36.0); Mean Corpuscular Volume 93.8 fL (80.0-100.0); Mean Platelet Volume 7.8 fL (7.0-11.0); Mono # (Auto) 0.6 th/mm3 (0.0-0.9); Mono % (Auto) 9.5 % (0.0-8.0); Neut # (Auto) 3.8 th/mm3 (1.8-7.7); Platelet Count 217 th/mm3 (150-450); Red Cell Distribution Width 12.8 % (11.6-17.2); White Blood Count 6.7 th/mm3 (4.0-11.0)
[2018-06-11 21:01] LABS: Albumin 3.5 g/dL (3.4-5.0); Anion Gap 10 meq/L (5-15); Aspartate Aminotransferase 17 U/L (15-37); Blood Urea Nitrogen 24 mg/dL (7-18); Calcium 9.5 mg/dL (8.5-10.1); Carbon Dioxide 29.8 meq/L (21.0-32.0); Chloride 101 meq/L (98-107); Glomerular Filtration Rate 65 mL/min (>89); Glucose,Random 106 mg/dL (74-106); Potassium 4.3 meq/L (3.5-5.1); Sodium 141 meq/L (136-145)
[2018-06-11 21:02] LABS: Alanine Aminotransferase 21 U/L (12-78)
[2018-06-11 21:04] LABS: Alkaline Phosphatase 83 U/L (45-117); Total Protein 6.8 g/dL (6.4-8.2)
[2018-06-12] MEDS: Divalproex 500 MG ER Tablet PO SCH (08:18)
[2018-06-12] MEDS: ASENAPINE SL SCH ×2 (08:19→21:03)
[2018-06-12] MEDS: Lisinopril 5 MG Tablet PO SCH (08:20)
--- NOTE | 2018-06-12 14:53 | P.PNPSY ---
Subjective Remarks: Patient seen for follow, chart reviewed. Discussion nursing staff reported the patient with no behavioral changes, has a compliant with treatment no aggressive behavior. Patient was found ambulating on the unit noted to be good spirits, continues to have some disorganization during interview with flight of ideas and loosening associations. Patient states that he slept well last evening, eating and drinking well, adequate bowel movement, reports feeling depressed stating "I have spent a lot of of my life in a room". Patient denies having had any more priapism and states tolerating asenapine well. Labs reported patient with VPA of 109 but was also taken after patient had received morning dose which level likely inaccurate. Ammonia level was also slightly elevated but no signs of hyperammonemic encephalopathy. Rest of CMP within normal limits. Review of Systems All other systems reviewed negative except as stated in HPI Mental Status Examination Appearance: Other (Fair, casual clothing) Consciousness: Alert, Vigilant Orientation: Person Motor Activity: Normal gait, Other (noted less involuntary movements) Speech: Pressured Language: Other (continues with nonsensical statements at times) Fund of Knowledge: Inadequate Attention and Concentration: Inadequate Memory: Impaired (Psychosis interferes) Mood: Good Affect: Appropriate Thought Process & Associations: Disorganized (slightly improving), Tangential Thought Content: Bizarre thinking Hallucination Type: Other (Internally stimulated) Delusion Type: Bizarre, Paranoid Suicidal Ideation: No (No SI voiced) Suicidal Plan: No Suicidal Intention: No Homicidal Ideation: No (No HI voiced) Homicidal Plan: No Homicidal Intention: No Insight: Poor Judgment: Poor Assessment and Plan - Assessment (1) Schizophrenia Code(s): F20.9 - Schizophrenia, unspecified Status: Acute - Plan Plan: Patient tolerated medications well, has not had any behavioral disturbances, compliant with treatment and cooperative with staff. Patient continues with some disorganization during interview but able to engage more effectively recently. We will continue current treatment. We will continue to monitor mood and behavior. Will order repeat VPA in a few days to trend along with ammonia level. Discharge planning in progress. Justification for Continued Inpatient Stay: At risk of further decompensation a lower level of care.
[2018-06-12] MEDS: Propranolol 10 MG Tablet PO SCH ×2 (17:29→20:56)
--- NOTE | 2018-06-13 09:36 | P.PNPSY ---
Subjective Remarks: Patient seen for follow, chart reviewed. Discussion nursing staff reported the patient had endorse having had a reaction since less evening which he brought to the attention of the nursing staff this morning. Patient was found heavily on unit states that he has had an erection since last night and going is "a little painful". Patient reports that he has good appetite, has some disturbed sleep due to the erection but denying any perceptual disturbances. Patient continues to have tangentiality with some disorganized rambling. Patient mentions having had this issue before while in the [facility] which she had required drainage. [facility] had reached out to urology [facility] consultant via telephone and discuss current findings of the patient's which he recommended to provide Sudafed 50 mg p.o. 1 and reevaluate in 1-2 hours. He also mentions that if this is not relieved by that time to reconsult for evaluation. Review of Systems All other systems reviewed negative except as stated in HPI Genitourinary: Reports other Mental Status Examination Appearance: Other (Fair, casual clothing) Consciousness: Alert, Vigilant Orientation: Person Motor Activity: Normal gait, Other (noted less involuntary movements) Speech: Pressured Language: Other (continues with nonsensical statements at times) Fund of Knowledge: Inadequate Attention and Concentration: Inadequate Memory: Impaired (Psychosis interferes) Mood: Good Affect: Appropriate Thought Process & Associations: Disorganized (slightly improving), Tangential Thought Content: Bizarre thinking Hallucination Type: Other (Internally stimulated) Delusion Type: Bizarre, Paranoid Suicidal Ideation: No (No SI voiced) Suicidal Plan: No Suicidal Intention: No Homicidal Ideation: No (No HI voiced) Homicidal Plan: No Homicidal Intention: No Insight: Poor Judgment: Poor Assessment and Plan - Assessment (1) Schizophrenia Code(s): F20.9 - Schizophrenia, unspecified Status: Acute - Plan Plan: Patient this time continues to endorse episodes of priapism, which urology [facility] consultant was contacted and recommended Sudafed 50 mg p.o. 1 and to reevaluate 1-2 hours. We will hold Depakote for now as this may be causing agents. Continue rest of medications. We will continue to monitor mood and behavior. Discharge planning a progress. Justification for Continued Inpatient Stay: At risk of further decompensation a lower level care.
[2018-06-13] MEDS: Propranolol 10 MG Tablet PO SCH ×3 (10:27→20:26)
[2018-06-13] MEDS: Lisinopril 5 MG Tablet PO SCH (10:27)
[2018-06-13] MEDS: Divalproex 500 MG ER Tablet PO SCH (10:29)
[2018-06-13] MEDS: ASENAPINE SL SCH ×4 (12:32→20:33)
--- NOTE | 2018-06-13 14:11 | P.PNPSY ---
Subjective Remarks: Patient has continued with sustaining erection after given Sudafed as instructed by Dr. Charlton earlier today and will proceed to request that consult with urology again for evaluation and recommendations. Was able to connect with urology group [facility] ([facility]) which will pass on the pertinent information to the on-call doctor from the urology group as attempts have been made to reach him/her. Will await for evaluation and recommendations. Mental Status Examination Appearance: Other (Fair, casual clothing) Consciousness: Alert, Vigilant Orientation: Person Motor Activity: Normal gait, Other (noted less involuntary movements) Speech: Pressured Language: Other (continues with nonsensical statements at times) Fund of Knowledge: Inadequate Attention and Concentration: Inadequate Memory: Impaired (Psychosis interferes) Mood: Good Affect: Appropriate Thought Process & Associations: Disorganized (slightly improving), Tangential Thought Content: Bizarre thinking Hallucination Type: Other (Internally stimulated) Delusion Type: Bizarre, Paranoid Suicidal Ideation: No (No SI voiced) Suicidal Plan: No Suicidal Intention: No Homicidal Ideation: No (No HI voiced) Homicidal Plan: No Homicidal Intention: No Insight: Poor Judgment: Poor Assessment and Plan - Assessment (1) Schizophrenia Code(s): F20.9 - Schizophrenia, unspecified Status: Acute - Plan Plan: Stat consult placed to urology [facility] consultant for continued priapism as instructed by Dr. Charlton earlier today. Justification for Continued Inpatient Stay: At risk of further decompensation a lower level care.
[2018-06-13] MEDS ORDERED: Phenylephrine/NS 1000 MCG/10ML Syringe IV.PUSH ONE (15:25)
[2018-06-13] MEDS ORDERED: SODIUM CHLORIDE 0.9% IRRIGATION ONE (15:30)
[2018-06-13] MEDS ORDERED: Lidocaine 1% Inj 50 ML Vial INFILTRATN ONE (15:40)
[2018-06-13 18:13] LABS: VBG Base Excess -11.6 mmol/L (-2-2); VBG Blood Gas Oxygen Content 9.3 Vol % (9.0-17.0); VBG PCO2 99 mmHG (44-48); VBG PH 6.93 (7.360-7.400); VBG PO2 34 mmHG (35-40)
--- NOTE | 2018-06-13 20:20 | MB ---
cc: Avinash Pickard MD DATE: 06/13/2018 DATE OF SERVICE 06/13/2018 REASON FOR CONSULTATION: Recurrent priapism. HISTORY OF PRESENT ILLNESS: The patient is a 58-year-old male with a history of schizophrenia, who was brought to [facility] under the [place] [facility] as the patient was found naked in the field, noted to be disorganized, confused, tangential and manic and was admitted to inpatient psychiatry for evaluation and management. During this stay, he developed a priapism. He was initially seen by Dr. Charlton, who gave him a Sudafed. However, after a couple hours, the priapism did not resolve on its own. He currently has not had any priapism since midnight last night. He has had previous priapisms in the past approximately 4 months ago at the [facility], which required irrigation, which was able to resolve the issue. He has had normal erections since that time, but this is the first recent episode of priapism. The patient denies any problems urinating. Denies history of kidney stones, urinary tract infections. Denies any prostate issues. Says he pees with a normal stream and is able to empty his bladder. Denies hematuria, dysuria or incontinence. I was called by Dr. Vincent to come evaluate the patient and in discussion with Dr. Vincent, he is currently changing his antipsychotics medications around including stopping the Depakote as they feel this may be contributing to his recurrent priapism. PAST MEDICAL HISTORY: Significant for hypertension, COPD priapism. PAST SURGICAL HISTORY: Circumcision. SOCIAL HISTORY: Reports living with his brother. Denies alcohol, drugs or tobacco. ALLERGIES: THORAZINE, HALDOL, PROLIXIN. MEDICATIONS: Include Depakote. REVIEW OF SYSTEMS: See HPI. Other systems reviewed and are otherwise negative. PHYSICAL EXAMINATION: VITAL SIGNS: Temperature 97.9, pulse 83, respiration rate 19, BP 120/79, saturating 95% on room air. GENERAL: He is awake and alert, in no apparent distress. He is slightly confused and manic. HEAD: Normocephalic, atraumatic. LUNGS: Coarse bilaterally. HEART: Regular rate and rhythm. No murmurs, gallops or rubs. HEENT: Head is normocephalic, atraumatic. Eyes: No scleral icterus. Extraocular muscles intact. ABDOMEN: Soft, nontender, nondistended. Positive bowel sounds. GENITOURINARY: His penis is circumcised, it is rigid and tender to touch. Scrotum is normal. Testes descended bilaterally, normal size and position. RECTAL: Examination not indicated at this time. EXTREMITIES: Nontender. No clubbing, cyanosis or edema. NEUROLOGIC: Cranial nerves 2 through 12 intact. Strength 5/5 in all 4 extremities. SKIN: No ulcers or rashes. [place], warm and dry. LABORATORY DATA: White count 6.7, hemoglobin 14.4, hematocrit 42.3, platelet count 217. Sodium 141, potassium 4.3, chloride 101, bicarbonate 29.8, creatinine 1.16, BUN 24. IMAGING STUDIES: None. ASSESSMENT: The patient is a 58-year-old male with a history of schizophrenia who presents with recurrent painful priapism. PLAN: We will go ahead and set the patient up for irrigation and drainage at the bedside. Risks, benefits, alternatives of the procedure were explained to the patient and he would like to proceed. Informed consent was obtained. Avinash Pickard MD EMF/ct , 05:53 PM , 06:02 PM
--- NOTE | 2018-06-13 20:45 | MP ---
cc: Avinash Pickard MD DATE OF OPERATION: 06/13/2018 PREOPERATIVE DIAGNOSIS: Ischemic priapism. POSTOPERATIVE DIAGNOSIS: Ischemic priapism. PROCEDURE PERFORMED: Irrigation and drainage of penis at the bedside. SURGEON: Avinash Pickard MD ANESTHESIA: Local. COMPLICATIONS: None. DRAINS: None. SPECIMENS: Venous blood for blood gas. DISPOSITION: Stable. INDICATIONS: The patient is a 58-year-old male admitted with an acute episode of schizophrenia. During admission, he was found to have priapism. The patient received a dose of Sudafed from another urologist, but it was not successful. The patient has had the priapism since midnight last night. Due to these findings, he was then consented for irrigation and drainage of his penis at the bedside. After risks, benefits and alternatives were explained to the patient, the patient elected to proceed and informed consent was obtained. DETAILS OF PROCEDURE: The patient was properly identified and a penile block was used with 1% lidocaine plain. The patient was then prepped and draped in normal sterile surgical fashion. An 18 gauge butterfly needle was then inserted in the corpora at the 3 o'clock position. He was then irrigated with normal saline and copious amounts of dark venous blood and clot were then removed. The penis then subsequently detumesced. Once the penis was completely flaccid, I then injected a total of 1 mL of phenylephrine. At this point, the needle was then removed. Venous blood was collected for a blood gas. This concluded the procedure. The patient tolerated the procedure well. Avinash Pickard MD EMF/elio , 06:05 PM , 06:11 PM
[2018-06-14] MEDS: LORazepam 1 MG Tablet PO PRN (08:50)
[2018-06-14] MEDS: Propranolol 10 MG Tablet PO SCH ×3 (09:00→20:59)
[2018-06-14] MEDS: Lisinopril 5 MG Tablet PO SCH (09:00)
[2018-06-14] MEDS: ASENAPINE SL SCH (14:04)
--- NOTE | 2018-06-14 14:56 | P.PNPSY ---
Subjective Remarks: Patient was seen and case discussed with nursing. Patient was agitated and threatening right before my interview. He was yelling loudly and slamming on a nursing window. He was given an ETO of Zyprexa 10 mg and Ativan 2 mg and fell asleep 20 minutes later. There are medical concerns with an unknown reason for priapism. Reviewing the note from yesterday another urology consult is pending. Various psychotropic medications are on hold from the treating psychiatrist from yesterday. Mental Status Examination Appearance: Other (Fair, casual clothing) Consciousness: Alert, Vigilant Orientation: Person Motor Activity: Normal gait, Other (noted less involuntary movements) Speech: Pressured Language: Other (continues with nonsensical statements at times) Fund of Knowledge: Inadequate Attention and Concentration: Inadequate Memory: Impaired (Psychosis interferes) Mood: Good Affect: Appropriate Thought Process & Associations: Disorganized (slightly improving), Tangential Thought Content: Bizarre thinking Hallucination Type: Other (Internally stimulated) Delusion Type: Bizarre, Paranoid Suicidal Ideation: No (No SI voiced) Suicidal Plan: No Suicidal Intention: No Homicidal Ideation: No (No HI voiced) Homicidal Plan: No Homicidal Intention: No Insight: Poor Judgment: Poor Assessment and Plan - Assessment (1) Schizophrenia Code(s): F20.9 - Schizophrenia, unspecified Status: Acute - Plan Plan: We will add Klonopin 1 mg p.o. 3 times daily for agitation. No change in antipsychotics at this time. Call myself or on-call doctor for ETO's for agitation as necessary. Urology consult pending Justification for Continued Inpatient Stay: Patient would decompensate in a less restrictive setting
[2018-06-14] MEDS: clonazePAM 1 MG Tablet PO SCH (18:21)
[2018-06-15] MEDS: Propranolol 10 MG Tablet PO SCH ×3 (09:34→20:08)
[2018-06-15] MEDS: clonazePAM 1 MG Tablet PO SCH ×3 (09:35→18:13)
[2018-06-15] MEDS: Lisinopril 5 MG Tablet PO SCH (09:37)
[2018-06-15] MEDS: ASENAPINE SL SCH ×2 (09:37→22:36)
[2018-06-15] MEDS: LORazepam 1 MG Tablet PO PRN ×2 (11:08→22:36)
--- NOTE | 2018-06-15 15:15 | P.PNPSY ---
Subjective Remarks: Patient was seen and case discussed with nursing. Patient is very labile today. He is loud aggressive and spending all his time at the window cursing at myself and staff. He received an ETO of Geodon and Ativan earlier. We gave Geodon instead of Zyprexa because allegedly he got an erection after the Zyprexa. He continues to be p.o. Klonopin. This morning his behavior was good but he ramped in the early afternoon. He has had intermittent erections throughout the day nothing that has lasted more than an hour. ETO did not have any effect and patient will now get his daily Klonopin and be put in the seclusion room Mental Status Examination Appearance: Other (Fair, casual clothing) Consciousness: Alert, Vigilant Orientation: Person Motor Activity: Normal gait, Other (noted less involuntary movements) Speech: Pressured Language: Other (continues with nonsensical statements at times) Fund of Knowledge: Inadequate Attention and Concentration: Inadequate Memory: Impaired (Psychosis interferes) Mood: Good Affect: Appropriate Thought Process & Associations: Disorganized (slightly improving), Tangential Thought Content: Bizarre thinking Hallucination Type: Other (Internally stimulated) Delusion Type: Bizarre, Paranoid Suicidal Ideation: No (No SI voiced) Suicidal Plan: No Suicidal Intention: No Homicidal Ideation: No (No HI voiced) Homicidal Plan: No Homicidal Intention: No Insight: Poor Judgment: Poor Assessment and Plan - Assessment (1) Schizophrenia Code(s): F20.9 - Schizophrenia, unspecified Status: Acute - Plan Plan: See HPI Justification for Continued Inpatient Stay: Patient would decompensate in a less restrictive setting
[2018-06-16] MEDS: LORazepam 1 MG Tablet PO PRN (07:04)
[2018-06-16] MEDS: Propranolol 10 MG Tablet PO SCH ×3 (08:51→20:25)
[2018-06-16] MEDS: Lisinopril 5 MG Tablet PO SCH (08:51)
[2018-06-16] MEDS: clonazePAM 1 MG Tablet PO SCH ×3 (08:52→17:50)
[2018-06-16] MEDS: ASENAPINE SL SCH ×2 (10:26→22:53)
--- NOTE | 2018-06-16 19:25 | P.PNPSY ---
Subjective Remarks: Patient seen for follow, chart reviewed. Discussion nursing staff reported the patient had a disruptive weekend and required ETO's due to agitation. Patient was found standing in the hallway noted to be irritable and demanding discharge. Patient states that he has been here long enough and wanted to be able to be discharged back to his residence. Patient denied having had any further directions, states tolerating medications well but at times noted to be somewhat disorganized patient began to become irritable during interview began cursing at show card writer which interview had to be ended due to patient's escalating agitation. Patient was able to be redirected after some time that required ETO. Staff reported the patient later in the afternoon was able to regain behavioral control was noted to be, cooperative and pleasant. Review of Systems All other systems reviewed negative except as stated in HPI Mental Status Examination Appearance: Other (casual) Consciousness: Alert, Vigilant Orientation: Person Motor Activity: Normal gait Speech: Pressured Language: Other (continues with nonsensical statements at times) Fund of Knowledge: Inadequate Attention and Concentration: Inadequate Memory: Impaired (Psychosis interferes) Mood: Angry Affect: Irritable Thought Process & Associations: Disorganized (slightly improving), Tangential Thought Content: Bizarre thinking Hallucination Type: Other (Internally stimulated) Delusion Type: Bizarre, Paranoid Suicidal Ideation: No (No SI voiced) Suicidal Plan: No Suicidal Intention: No Homicidal Ideation: No (No HI voiced) Homicidal Plan: No Homicidal Intention: No Insight: Poor Judgment: Poor Assessment and Plan - Assessment (1) Schizophrenia Code(s): F20.9 - Schizophrenia, unspecified Status: Acute - Plan Plan: Patient continues with poor impulse control, difficulty with emotional regulation, disorganized at times, continues to be intrusive and belligerent and upset. We will continue current treatment. We will continue to monitor mood and behavior. Patient to be discharged back to [facility]. Discharge planning in progress. Justification for Continued Inpatient Stay: At risk for further decompensation if at lower level of care.
[2018-06-17] MEDS: Propranolol 10 MG Tablet PO SCH ×3 (09:21→20:38)
[2018-06-17] MEDS: Divalproex 500 MG ER Tablet PO SCH (09:21)
[2018-06-17] MEDS: clonazePAM 1 MG Tablet PO SCH ×3 (09:22→17:30)
[2018-06-17] MEDS: Lisinopril 5 MG Tablet PO SCH (09:22)
[2018-06-17] MEDS ORDERED: SODIUM CHLOR 0.9% IV.SIG SCH ×2 (15:00)
[2018-06-17] MEDS ORDERED: PHENYLEPHRINE IV.SIG SCH ×2 (15:00)
--- NOTE | 2018-06-17 15:06 | P.PNURO ---
Subjective Patient symptoms today: Pt seen and examined. Having Priapism today. Now improving as pain is subsidiing.Given Pseudophed at bedside now. Objective Vital Signs: Vital Signs 06/16/18 17:04 06/17/18 06:10 Temperature 98.6 F 97.4 F L Pulse Rate 83 68 Respiratory Rate 18 17 Blood Pressure 126/92 H 108/63 Pulse Oximetry 99 96 Result Diagrams: 06/11/18 19:50 06/11/18 19:50 Medications and IVs: Active Medications Generic Name Dose Route Start Last Admin Trade Name Freq PRN Reason Stop Dose Admin Acetaminophen 650 mg 05/25/18 15:59 06/08/18 13:33 Tylenol PO 650 mg Q4H PRN Administration Pain 1-5 or Temp >101F Al Hydrox/Mg Hydrox/Simethicone 30 ml 05/25/18 15:59 Mag-Al Plus Susp Liq PO Q6H PRN DYSPEPSIA Al Hydroxide/Mg Hydroxide 30 ml 05/25/18 15:59 Milk Of Magnesia Liq PO DAILY PRN Constipation Benztropine Mesylate 0.5 mg 05/29/18 21:00 06/17/18 09:21 Cogentin PO 0.5 mg BID LYSSA Administration Clonazepam 1 mg 06/14/18 18:00 06/17/18 13:35 Klonopin PO 1 mg TID LYSSA Administration Diphenhydramine HCl 50 mg 05/25/18 21:00 06/15/18 20:08 Benadryl PO 50 mg HS PRN Administration INSOMNIA Phenylephrine HCl 0.5 mg/ 1 mls @ 60 mls/hr 06/17/18 15:00 Sodium Chloride 0.95 ml/ IV.SIG Syringe/Bag PRN LYSSA Lisinopril 5 mg 05/29/18 16:30 06/17/18 09:22 Prinivil PO 5 mg DAILY LYSSA Administration Lorazepam 1 mg 05/29/18 15:22 06/16/18 07:04 Ativan PO 1 mg Q6H PRN Administration ANXIETY AND/OR AGITATION Nicotine 1 patch 05/25/18 17:00 06/17/18 10:34 Habitrol 21 Mg Patch.24 Hr T-DERMAL 1 patch DAILY PRN Administration NICOTINE CRAVING Patch Removal 1 each 05/25/18 17:00 Remove Old Patch T-DERMAL DAILY PRN SEE LABEL COMMENTS Propranolol HCl 10 mg 05/30/18 15:00 06/17/18 09:21 Inderal PO 10 mg DAILY@ [facility] Administration Objective Remarks: soft erection noted at present Assessment and Plan - Plan Priapism due to possible medications Phenyephrine ordered for on unit when having episode of priapism Will follow.
--- NOTE | 2018-06-17 19:47 | P.PNPSY ---
Subjective Remarks: Patient seen for follow-up, chart reviewed. Discussion discussion with nursing staff reported the patient refused asenapine since 2 days ago and continues report having occasional erections. Patient also had reported having erections and says at 7 AM this morning but did not endorses during interview only after visit with patient the patient reports to the nurse. At time of interview initially patient stated feeling "okay" he had denied having had any further erections and states not having any of the physical complaints at this time. Discussion of having patient restart Depakote was reviewed as patient had the patient during her previous state hospitalization not having had issues of priapism at that time on this medication. Review of Systems All other systems reviewed negative except as stated in HPI Mental Status Examination Appearance: Other (casual) Consciousness: Alert, Vigilant Orientation: Person Motor Activity: Normal gait Speech: Unremarkable Language: Other (continues with nonsensical statements at times) Fund of Knowledge: Inadequate Attention and Concentration: Inadequate Memory: Impaired (Psychosis interferes) Mood: Angry Affect: Irritable Thought Process & Associations: Disorganized (slightly improving), Tangential Thought Content: Bizarre thinking Hallucination Type: Other (Internally stimulated) Delusion Type: Bizarre, Paranoid Suicidal Ideation: No (No SI voiced) Suicidal Plan: No Suicidal Intention: No Homicidal Ideation: No (No HI voiced) Homicidal Plan: No Homicidal Intention: No Insight: Poor Judgment: Poor Assessment and Plan - Assessment (1) Schizophrenia Code(s): F20.9 - Schizophrenia, unspecified Status: Acute - Plan Plan: Patient continues to have episodes of disorganized statements, continues to have labile mood with episodes of agitation and irritability at times. As patient had reported having had a reaction since earlier this morning prior to interview neurology weight loss sales consultant contacted to which she had recommended to provide patient with 1 dose of Sudafed 60 mg p.o. 1 given it would be seen by Dr. Charlton later today. Possibilities of likelihood Depakote was a causative agent was reviewed as patient had endorsed this initially but patient is a poor historian and there had been no evidence of patient and had priapism on Depakote and previous admission at the [facility] as well as no evidence of having patient having had priapism during initial part of this admission where he was on this medication since admission. Antipsychotic medications may be provoking agent which will be held for now. We will continue rest of medications. We will continue to monitor mood and behavior. Neurology consult input appreciated. Discharge planning in progress. Justification for Continued Inpatient Stay: At risk of further decompensation a lower level care.
[2018-06-18] MEDS: Citalopram 20 MG Tablet PO SCH (09:09)
[2018-06-18] MEDS: Divalproex 500 MG ER Tablet PO SCH (09:09)
[2018-06-18] MEDS: Lisinopril 5 MG Tablet PO SCH (09:10)
[2018-06-18] MEDS: Propranolol 10 MG Tablet PO SCH ×3 (09:10→20:17)
[2018-06-18] MEDS: clonazePAM 1 MG Tablet PO SCH ×3 (09:11→17:32)
--- NOTE | 2018-06-18 12:44 | P.PNPSY ---
Subjective Remarks: Patient seen for follow, chart reviewed. Discussion nursing staff reported the patient not having any more erections. Patient was found sitting in hospital bed eating breakfast noted to be calm and cooperative. Patient reported wanting to be discharged, request to be resumed on Celexa. Discussion of resuming patient on Depakote was reviewed which he agreed with. Patient continues to have some irritability but no aggressive behavior since yesterday. Patient was seen by urology consult for follow-up and make recommendations. Patient continues with some disorganization at times and delusional stating that he is telepathic along with flight of ideas. Review of Systems All other systems reviewed negative except as stated in HPI Mental Status Examination Appearance: Other (casual) Consciousness: Alert, Vigilant Orientation: Person Motor Activity: Normal gait Speech: Unremarkable Language: Other (continues with nonsensical statements at times) Fund of Knowledge: Inadequate Attention and Concentration: Inadequate Memory: Impaired (Psychosis interferes) Mood: Angry Affect: Irritable Thought Process & Associations: Disorganized (slightly improving), Tangential Thought Content: Bizarre thinking, Delusional (That he is telepathic) Hallucination Type: Other (Internally stimulated) Delusion Type: Bizarre, Paranoid Suicidal Ideation: No (No SI voiced) Suicidal Plan: No Suicidal Intention: No Homicidal Ideation: No (No HI voiced) Homicidal Plan: No Homicidal Intention: No Insight: Poor Judgment: Poor Assessment and Plan - Assessment (1) Schizophrenia Code(s): F20.9 - Schizophrenia, unspecified Status: Acute - Plan Plan: Patient continues with disorganized behavior, irritability, portables control along with some delusions. We will resume patient on Depakote ER 2000 mg p.o. daily and start patient on citalopram 20 mg p.o. daily. We will continue current treatment. We will continue to monitor mood and behavior. Patient likely for discharge back to [facility] tomorrow. Justification for Continued Inpatient Stay: At risk for further decompensation if at lower level of care
--- NOTE | 2018-06-18 13:04 | P.PNURO ---
Subjective Patient symptoms today: Pt seen and examined. No priapism at present. Objective Vital Signs: Vital Signs 06/17/18 17:50 06/18/18 05:47 Temperature 98.4 F 97.4 F L Pulse Rate 81 66 Respiratory Rate 19 18 Blood Pressure 131/82 112/69 Pulse Oximetry 97 93 L Result Diagrams: 06/11/18 19:50 06/11/18 19:50 Medications and IVs: Active Medications Generic Name Dose Route Start Last Admin Trade Name Freq PRN Reason Stop Dose Admin Acetaminophen 650 mg 05/25/18 15:59 06/08/18 13:33 Tylenol PO 650 mg Q4H PRN Administration Pain 1-5 or Temp >101F Al Hydrox/Mg Hydrox/Simethicone 30 ml 05/25/18 15:59 Mag-Al Plus Susp Liq PO Q6H PRN DYSPEPSIA Al Hydroxide/Mg Hydroxide 30 ml 05/25/18 15:59 Milk Of Magnesia Liq PO DAILY PRN Constipation Benztropine Mesylate 0.5 mg 05/29/18 21:00 06/18/18 09:10 Cogentin PO 0.5 mg BID LYSSA Administration Citalopram Hydrobromide 20 mg 06/18/18 09:00 06/18/18 09:09 Celexa PO 20 mg DAILY LYSSA Administration Clonazepam 1 mg 06/14/18 18:00 06/18/18 09:11 Klonopin PO 1 mg TID LYSSA Administration Diphenhydramine HCl 50 mg 05/25/18 21:00 06/15/18 20:08 Benadryl PO 50 mg HS PRN Administration INSOMNIA Divalproex Sodium 2,000 mg 06/18/18 09:00 06/18/18 09:09 Depakote Er PO 2,000 mg DAILY LYSSA Administration Phenylephrine HCl 0.5 mg/ 1 mls @ 60 mls/hr 06/17/18 15:00 Sodium Chloride 0.95 ml/ IV.SIG Syringe/Bag PRN LYSSA Lisinopril 5 mg 05/29/18 16:30 06/18/18 09:10 Prinivil PO 5 mg DAILY LYSSA Administration Lorazepam 1 mg 05/29/18 15:22 06/16/18 07:04 Ativan PO 1 mg Q6H PRN Administration ANXIETY AND/OR AGITATION Nicotine 1 patch 05/25/18 17:00 06/18/18 09:10 Habitrol 21 Mg Patch.24 Hr T-DERMAL 1 patch DAILY PRN Administration NICOTINE CRAVING Patch Removal 1 each 05/25/18 17:00 Remove Old Patch T-DERMAL DAILY PRN SEE LABEL COMMENTS Propranolol HCl 10 mg 05/30/18 15:00 06/18/18 09:10 Inderal PO 10 mg DAILY@,15,21 LYSSA Administration Objective Remarks: soft erection noted at present 06/18 Abd:soft,nt,nd penis is flaccid Assessment and Plan - Plan Priapism due to possible medications Phenyephrine ordered for on unit when having episode of priapism Will follow. 06/18 58 y.o pschizophrenic with priapism Continue Depakote Would recommend holding tricia inhibitor for now. D/W Dr. Vincent
[2018-06-19 06:06] VITALS: BP 119/83; PULSE 64; RESP 17; TEMP 97.8; O2SAT 99
[2018-06-19] MEDS: clonazePAM 1 MG Tablet PO SCH (08:04)
[2018-06-19] MEDS: Citalopram 20 MG Tablet PO SCH (08:05)
[2018-06-19] MEDS: Propranolol 10 MG Tablet PO SCH (08:05)
[2018-06-19] MEDS: Divalproex 500 MG ER Tablet PO SCH (08:05)
[2018-06-19] MEDS: Lisinopril 5 MG Tablet PO SCH (08:05)
--- NOTE | 2018-06-19 15:40 | P.DSPSY ---
Psychiatry Discharge Summary Inpatient Psychiatric care?: Yes Advance Directives: No Mental Health Advance Directive: No Health Care Proxy: Yes - Admission Admission Date: May 25, 2018 15:11 - Admission Diagnosis (1) Schizophrenia Code(s): F20.9 - Schizophrenia, unspecified Brief History: Tanya is a 58 y/o man, domiciled with mother, with a past history of schizophrenia, previous psychiatric admissions including state hospitalizations, denies any previous suicide attempt or self interest behavior , with a past medical history significant for hypertension COPD, denies any substance use history, who was brought under [employer] act the patient was found naked in the field noted to be disorganized, confused, tangential and manic and was admitted to the inpatient psychiatry for further evaluation and management. Patient was found lying hospital bed noted B, and superficially cooperative that he is noted to be grossly disorganized during interview and was currently taking statements and responses to questioning. Patient states that he was walking in circles, unable to recall events prior to his admission only stating that people were making fun of him. Patient denying auditory hallucinations but is noted to be talking to self as per staff observation on the unit. Patient unable to provide any adequate history is a poor historian. Patient has endorse to staff that he is a "serial killer" as well as other bizarre statements. Patient is unable to tolerate interview due to disorganization. Past psychiatric history: Previous psychiatric diagnoses schizophrenia, previous psychiatric admissions, including state hospitalization, no previous suicide attempt or self interest behavior. Patient has no outpatient mental health provider, previous medication trials included in psychotic mood able to recall names, along with Artane and Benadryl. History of ECT treatments in the past as per chart. Past medical history: hypertension, COPD Substance use history: Denies Allergies: Thorazine, Haldol, Prolixin Social history: Reports living with brother. Tobacco Use In Past 30 Days: No How Often Do You Have a Drink Containing Alcohol: Unable to Obtain Hospital Course: Patient is a 58 y/o man, domiciled with mother, with a past history of schizophrenia, previous psychiatric admissions including state hospitalizations, denies any previous suicide attempt or self injurious behavior , with a past medical history significant for hypertension COPD, denies any substance use history, who was brought under [employer] act the patient was found naked in the field noted to be disorganized, confused, tangential and manic and was admitted to the inpatient psychiatry for further evaluation and management. Patient was admitted to a locked, inpatient psychiatric unit. Appropriate precautions were in place throughout patient's hospital stay. Patient was seen and examined on the unit by psychiatry. Patient was started on Depakote ER 2000mg daily with therapeutic VPA levels, ziprasidone which he was noted to have had more episodes of agitation and was cross titrated to olanzapine which also had to be discontinued due to priapism, benztropine 0.5mg PO BID, citalopram 20mg daily, propranolol 10mg PO TID, clonazepam 1mg PO TID. Patient was also tried on asenapine which patient resumed with priapism which during admission had required urology consult and required irrigation and drainage of penis which did not resume after discontinuation of antipsychotic medications. Patient continued with episodes of agitation and belligerence along with episodes of yelling racial slurs at staff and peers which he had required ETO during those episodes to manage his symtpoms. Patient was transferred to the [facility] as he requires long-term psychiatric stabilization. On the day of discharge: Patient seen and examined; chart reviewed. Case discussed with nurse and counselor. No behavioral issues overnight. On my examination today, the patient is to be discharged to [facility]. He was noted to be irritable , yelling and making racial slurs at staff, required ETO and was escorted to transport and discharged to [facility]. - Discharge Discharge Date: 06/19/18 - Discharge Diagnosis (1) Schizophrenia Code(s): F20.9 - Schizophrenia, unspecified Status: Acute Discharge Disposition: Psychiatric Facility - Discharge Instructions Discharge Diet: Heart Healthy Diet Activities You Can Perform: Regular- No Restrictions - Discharge Time > 30 minutes Mental Status Examination Appearance: Other (casual) Consciousness: Alert, Vigilant Orientation: Person Motor Activity: Normal gait Speech: Unremarkable Language: Other (continues with nonsensical statements at times) Fund of Knowledge: Inadequate Attention and Concentration: Inadequate Memory: Impaired (Psychosis interferes) Mood: Angry Affect: Irritable Thought Process & Associations: Disorganized (slightly improving), Tangential Thought Content: Bizarre thinking, Delusional (That he is telepathic) Hallucination Type: Other (Internally stimulated) Delusion Type: Bizarre, Paranoid Suicidal Ideation: No (No SI voiced) Suicidal Plan: No Suicidal Intention: No Homicidal Ideation: No (No HI voiced) Homicidal Plan: No Homicidal Intention: No Insight: Poor Judgment: Poor Discharge/Advance Care Plan - Results Vital Signs: Last Vital Signs Temp 97.8 F 06/19/18 06:04 Pulse 64 06/19/18 06:04 Resp 17 06/19/18 06:04 BP 119/83 06/19/18 06:04 Pulse Ox 99 06/19/18 06:04 Lab Results: Laboratory Results Hemoglobin A1c 4.7 % (4.3-6.0) 05/27/18 16:15 Triglycerides 216 mg/dL (42-150) H 05/27/18 16:15 Cholesterol 272 mg/dL (120-200) H 05/27/18 16:15 LDL Cholesterol, Calc 172 mg/dL (0-99) H 05/27/18 16:15 HDL Cholesterol 57.3 mg/dL (40.0-60.0) 05/27/18 16:15 TSH 0.790 uIU/mL (0.358-3.740) 05/27/18 16:15 Valproic Acid 109 mcg/mL (50-100) H* 06/12/18 10:15 Summary of Procedures: none Imaging: ITS Impressions Head CT 06/05/18 00:00 CONCLUSION: 1. Unremarkable CT scan of the brain. . Pending Results: None - Medications Number of antipsychotic medications at discharge: 0 - Discharge Care Plan Goals to Promote Your Health: * To prevent worsening of your condition and complications * To maintain your health at the optimal level Directions to Meet Your Goals: Take your medications as prescribed Follow your dietary instruction Follow activity as directed Keep your appointments as scheduled Take your immunizations and boosters as scheduled If your symptoms worsen call your PCP, if no PCP go to Urgent Care Center or Emergency Room For 27/05 questions related to your inpatient stay or results of tests pending at discharge, please contact Dr. Rafa Vincent MD at Smoking is Dangerous to Your Health. Avoid second hand smoking
== END 2018-06-19 08:50 ==
LOC: H270 15:11
PROVIDERS: ADMIT Student in an Organized Health Care Education/Training Program; ATTEND Student in an Organized Health Care Education/Training Program